=== PATIENT | female | born 1965 | race Caucasian/White ===

== ENCOUNTER 2017-12-03 10:49 | Emergency (ER) | payer MEDICARE, OTHER ==
[~2017-12-03] VITALS: Ht 177.8 cm; Wt 102.1 kg
[2017-12-03] MEDS ORDERED: LORA-877 PO (11:12)
[2017-12-03] MEDS ORDERED: ZOLP10TA PO (11:12)
[2017-12-03] MEDS ORDERED: AMOX-358 PO (11:12)
[2017-12-03] MEDS ORDERED: RISP0.2517 PO (11:14)
[2017-12-03] MEDS ORDERED: BUSP5TAB59 PO (11:14)
[2017-12-03] MEDS ORDERED: FLUO20CA42 PO (11:15)
[2017-12-03] MEDS: fentaNYL INJECTION 100 MCG/2 ML AMP IVP STA (12:09)
[2017-12-03 12:21] LABS: BASOPHILS % (AUTO) 1 % (0-10); EOSINOPHILS # (AUTO) 0.2 10^3/uL (0.0-0.3); EOSINOPHILS % (AUTO) 4 % (0-10); HEMATOCRIT 42 % (35-52); HEMOGLOBIN 14.1 G/DL (11.5-16.0); LYMPHOCYTES # (AUTO) 1.6 X 10^3 (1.0-4.0); LYMPHOCYTES % (AUTO) 27 % (12-44); MEAN CORPUSCULAR HEMOGLOBIN 29 PG (25-34); MEAN CORPUSCULAR HGB CONC 33 G/DL (32-36); MEAN CORPUSCULAR VOLUME 88 FL (80-99); MEAN PLATELET VOLUME 10.1 FL (7.4-10.4); MONOCYTES # (AUTO) 0.5 X 10^3 (0.0-1.0); MONOCYTES % (AUTO) 8 % (0-12); NEUTROPHILS # (AUTO) 3.7 X 10^3 (1.8-7.8); NEUTROPHILS % (AUTO) 61 % (42-75); PLATELET COUNT 241 10^3/uL (130-400); RED BLOOD COUNT 4.83 10^6/uL (4.35-5.85); RED CELL DISTRIBUTION WIDTH 14.8 % (10.0-14.5); WHITE BLOOD COUNT 6.1 10^3/uL (4.3-11.0)
[2017-12-03 12:45] LABS: ALANINE AMINOTRANSFERASE 7 U/L (0-55); ALBUMIN 4.2 GM/DL (3.2-4.5); ALKALINE PHOSPHATASE 73 U/L (40-136); AMYLASE 49 U/L (25-125); BILIRUBIN,TOTAL 0.4 MG/DL (0.1-1.0); BUN/CREATININE RATIO 16; CALCIUM 9.8 MG/DL (8.5-10.1); CARBON DIOXIDE 28 MMOL/L (21-32); CHLORIDE 100 MMOL/L (98-107); CREATININE SERUM 0.77 MG/DL (0.60-1.30); GFR ESTIMATED > 60; GLUCOSE 99 MG/DL (70-105); LIPASE 23 U/L (8-78); POTASSIUM 4.7 MMOL/L (3.6-5.0); SODIUM 135 MMOL/L (135-145); TOTAL PROTEIN 7.5 GM/DL (6.4-8.2)
--- NOTE | 2017-12-03 12:51 | Diagnostic Imaging Report ---
INDICATION: Chest wall pain and hoarseness PA and lateral views of the chest are obtained. There is no previous study available at this time for comparison. Heart size and pulmonary vascularity are within normal limits. There is no pneumothorax or consolidation. There is slight left basilar atelectasis. No pleural fluid is seen. IMPRESSION: Mild left basilar atelectasis without other evidence of acute abnormality. Dictated by: Dictated on workstation # [id number]
--- NOTE | 2017-12-03 12:58 | ED Respiratory ---
General Chief Complaint: Chest Wall/Rib Pain Stated Complaint: RT SIDE PAIN/COUGH Nursing Triage Note: PT CO OF R RIB PAIN, PT STATES HAS BRONCHITIS FOR PAST WEEK, IN ON 8TH DAY OF AUGMENTIN, RATES PAIN 8/10. History of Present Illness Date Seen by Provider: Dec 03, 2017 Time Seen by Provider: 11:45 Initial Comments 52-year-old female reports right rib pain, she was diagnosed with bronchitis approximately 7 days ago. She is taking Augmentin. She has been an albuterol inhaler but she has not used it for the last 2 days. She continues to smoke approximately half a pack a day. She reports brown sputum, she has noticed a decrease in the amount over the last 2 days. She has a history of hepatitis C. She denies any nausea or vomiting, she does report more frequent stools and darker in color. Timing/Duration: intermittent Severity: moderate Prior Episodes/Possible Cause: no prior episodes Modifying Factors: Improves With Rest Associated Symptoms: cough, muscle aches Allergies and Home Medications Allergies Coded Allergies: Sulfa (Sulfonamide Antibiotics) (Verified Allergy, Unknown, 12/03/17) erythromycin base (Verified Allergy, Unknown, 12/03/17) trazodone (Verified Allergy, Unknown, 12/03/17) Home Medications Amoxicillin/Potassium Clav 1 Each Tablet, 1 EACH PO BID, (Reported) Loratadine/Pseudoephedrine 1 Each Tab.er.24h, 1 EACH PO DAILY, (Reported) Patient Home Medication List Home Medication List Reviewed: Yes Review of Systems Constitutional: no symptoms reported, see HPI Respiratory: see HPI, cough, other (right rib pain) All Other Systems Reviewed Negative Unless Noted: Yes Past Qneaqmu-Cytsnz-Orzxmz Hx Past Med/Social Hx: Reviewed Nursing Past Med/Soc Hx Patient Social History Alcohol Use: Occasionally Uses Recreational Drug Use: No Smoking Status: Current Everyday Smoker Type Used: Cigarettes Recent Foreign Travel: No Contact w/Someone Who Travel: No Recent Infectious Disease Expo: No Recent Hopitalizations: No Physical Abuse: No Sexual Abuse: No Seasonal Allergies Seasonal Allergies: Yes Past Medical History Surgeries: Yes Abdominal Gastrointestinal: Yes Hepatitis (C) Nursing Suicide Risk Score: 0 Physical Exam Vital Signs Vital Signs - First Documented 12/03/17 10:55 Temp 98.2 Pulse 83 Resp 18 B/P (MAP) 123/81 (95) Pulse Ox 96 Capillary Refill : Less Than 3 Seconds General Appearance: WD/WN, no apparent distress Eyes: Bilateral Eye Normal Inspection, Bilateral Eye PERRL, Bilateral Eye EOMI Neck: non-tender, full range of motion, supple, normal inspection Respiratory: lungs clear, normal breath sounds, other (tactile fremitus symmetric vibrations, Symmetric Thoracic excursion. Pain to palpation right lower ribs at costal margin) Cardiovascular: normal peripheral pulses, regular rate, rhythm Gastrointestinal: normal bowel sounds, non tender, soft Extremities: normal capillary refill Neurologic/Psychiatric: no motor/sensory deficits, alert, normal mood/affect, oriented x 3 Skin: normal color, warm/dry Progress/Results/Core Measures Suspected Sepsis Recent Fever Within 48 Hours: No Infection Criteria Present: None New/Unexplained Altered Menta: No Sepsis Screen: No Definite Risk SIRS Temperature:98.2 Pulse: 83 Respiratory Rate: 18 Laboratory Tests 12/03/17 12:05: White Blood Count 6.1 Blood Pressure 123 /81 Mean: 95 Laboratory Tests 12/03/17 12:05: Creatinine 0.77, Platelet Count 241, Total Bilirubin 0.4 Results/Orders Lab Results Laboratory Tests Test 12/03/17 12:05 12/03/17 13:00 Range/Units White Blood Count 6.1 4.3-11.0 10^3/uL Red Blood Count 4.83 4.35-5.85 10^6/uL Hemoglobin 14.1 11.5-16.0 G/DL Hematocrit 42 35-52 % Mean Corpuscular Volume 88 80-99 FL Mean Corpuscular Hemoglobin 29 25-34 PG Mean Corpuscular Hemoglobin Concent 33 32-36 G/DL Red Cell Distribution Width 14.8 H 10.0-14.5 % Platelet Count 241 130-400 10^3/uL Mean Platelet Volume 10.1 7.4-10.4 FL Neutrophils (%) (Auto) 61 42-75 % Lymphocytes (%) (Auto) 27 12-44 % Monocytes (%) (Auto) 8 0-12 % Eosinophils (%) (Auto) 4 0-10 % Basophils (%) (Auto) 1 0-10 % Neutrophils # (Auto) 3.7 1.8-7.8 X 10^3 Lymphocytes # (Auto) 1.6 1.0-4.0 X 10^3 Monocytes # (Auto) 0.5 0.0-1.0 X 10^3 Eosinophils # (Auto) 0.2 0.0-0.3 10^3/uL Basophils # (Auto) 0.0 0.0-0.1 10^3/uL Sodium Level 135 135-145 MMOL/L Potassium Level 4.7 3.6-5.0 MMOL/L Chloride Level 100 98-107 MMOL/L Carbon Dioxide Level 28 21-32 MMOL/L Anion Gap 7 5-14 MMOL/L Blood Urea Nitrogen 12 7-18 MG/DL Creatinine 0.77 0.60-1.30 MG/DL Estimat Glomerular Filtration Rate > 60 BUN/Creatinine Ratio 16 Glucose Level 99 70-105 MG/DL Calcium Level 9.8 8.5-10.1 MG/DL Total Bilirubin 0.4 0.1-1.0 MG/DL Aspartate Amino Transf (AST/SGOT) 16 5-34 U/L Alanine Aminotransferase (ALT/SGPT) 7 0-55 U/L Alkaline Phosphatase 73 40-136 U/L C-Reactive Protein High Sensitivity 0.78 H 0.00-0.50 MG/DL Total Protein 7.5 6.4-8.2 GM/DL Albumin 4.2 3.2-4.5 GM/DL Amylase Level 49 25-125 U/L Lipase 23 8-78 U/L Urine Color YELLOW Urine Clarity CLEAR Urine pH 7 5-9 Urine Specific H[place]ckley 1.010 L 1.016-1.022 Urine Protein NEGATIVE NEGATIVE Urine Glucose (UA) NEGATIVE NEGATIVE Urine Ketones NEGATIVE NEGATIVE Urine Nitrite NEGATIVE NEGATIVE Urine Bilirubin NEGATIVE NEGATIVE Urine Urobilinogen NORMAL NORMAL MG/DL Urine Leukocyte Esterase NEGATIVE NEGATIVE Urine RBC (Auto) 2+ H NEGATIVE Urine RBC 0-2 /HPF Urine WBC NONE /HPF Urine Squamous Epithelial Cells 0-2 /HPF Urine Crystals NONE /LPF Urine Bacteria NEGATIVE /HPF Urine Casts NONE /LPF Urine Mucus NEGATIVE /LPF Urine Culture Indicated NO My Orders Orders - SONIA LANGSTON Amylase (12/03/17 11:58) Cbc With Automated Diff (12/03/17 11:58) Comprehensive Metabolic Panel (12/03/17 11:58) Hs C Reactive Protein (12/03/17 11:58) Hepatitis Panel Acute (12/03/17 11:58) Lipase (12/03/17 11:58) Ua Culture If Indicated (12/03/17 11:58) Chest Pa/Lat (2 View) (12/03/17 11:58) Saline Lock/Iv-Start (12/03/17 12:00) Fentanyl Injection (Sublimaze Injection (12/03/17 12:00) Vital Signs/I&O 12/03/17 12/03/17 10:55 13:40 Temp 98.2 Pulse 83 83 Resp 18 18 B/P (MAP) 123/81 (95) 123/81 (95) Pulse Ox 96 96 Capillary Refill : Less Than 3 Seconds Blood Pressure Mean: 95 Progress Note : Time: 11:45 Progress Note Initial evaluation completed, recommended labs and chest x-ray. Fentanyl 25 g IV for pain. 1245 patient reports some improvement in her symptoms. Chest x-ray and labs essentially normal. 1300 discharge instructions and return precautions reviewed. Diagnostic Imaging Diagonstic Imaging: Xray Plain Films/CT/US/NM/MRI: chest Comments NAME: VAL [facility] REC#: [id number] PT STATUS: REG ER : 1965 PHYSICIAN: SONIA LANGSTON ADMIT DATE: 12/03/17/ER Draft Date of Exam:12/03/17 CHEST PA/LAT (2 VIEW) INDICATION: Chest wall pain and hoarseness PA and lateral views of the chest are obtained. There is no previous study available at this time for comparison. Heart size and pulmonary vascularity are within normal limits. There is no pneumothorax or consolidation. There is slight left basilar atelectasis. No pleural fluid is seen. IMPRESSION: Mild left basilar atelectasis without other evidence of acute abnormality. Dictated on workstation # [id number] Dict: 12/03/17 1243 Trans: 12/03/17 1251 JOSEPH [id number] Interpreted by: KETURAH MORALES MD Electronically signed by: Departure Impression Primary Impression: Bronchitis Additional Impressions: Cough Pleurisy Disposition: 01 HOME, SELF-CARE Condition: Improved Departure-Patient Inst. Decision time for Depature: 13:15 Referrals: NO,LOCAL PHYSICIAN (PCP/Family) Primary Care Physician Patient Instructions: Pleuritic Chest Pain (DC) Add. Discharge Instructions: You may alternate Tylenol 650 mg and ibuprofen 600 mg every 4 hours for pain or fever. Use warm moist compression on your ribs for pain. Follow-up with your primary care provider at [facility] for results of hepatitis panel. Return to emergency department for difficulty breathing, increased pain, fever greater than 101 not relieved by Tylenol and ibuprofen or new urgent health care problems. All discharge instructions reviewed with patient and/or family. Voiced understanding. Copy Copies To 1: JUAN C SANCHEZ AMY ARNP Dec 03, 2017 12:58
[2017-12-03 13:09] LABS: BILIRUBIN,URINE NEGATIVE (NEGATIVE); CLARITY,URINE CLEAR; COLOR,URINE YELLOW; GLUCOSE, URINE (UA) NEGATIVE (NEGATIVE); KETONES,URINE NEGATIVE (NEGATIVE); LEUKOCYTE ESTERASE ,URINE NEGATIVE (NEGATIVE); NITRITE,URINE NEGATIVE (NEGATIVE); PH,URINE 7 (5-9); PROTEIN,URINE NEGATIVE (NEGATIVE); UROBILINOGEN,URINE NORMAL (NORMAL)
[2017-12-03 13:16] LABS: RBC,URINE 0-2 /HPF
[2017-12-03 13:17] LABS: BACTERIA,URINE NEGATIVE /HPF; SQUAMOUS EPITHELIAL CELL,UR 0-2 /HPF
[2017-12-03 13:40] VITALS: BP 123/81
[2017-12-04 07:44] LABS: HEPATITIS C ANTIBODY C Reactive (Non-Reactive)
== END 2017-12-03 13:30 | disposition home or self-care (01) ==
LOC: ER 10:53
DX: J40 Bronchitis, not specified as acute or chronic (principal); B19.20 Unspecified viral hepatitis C without hepatic coma; F17.210 Nicotine dependence, cigarettes, uncomplicated; Z88.2 Allergy status to sulfonamides; Z88.1 Allergy status to other antibiotic agents; Z88.8 Allergy status to other drugs, medicaments and biological substances; Z79.51 Long term (current) use of inhaled steroids
CPT/HCPCS: 36415; 71046; 80053; 80074; 81000; 82150; 83690; 85025; 86141; 96374

== ENCOUNTER → 2018-07-26 | Outpatient (CLI) | payer MEDICARE ==
[~2018-07-26] MED LIST: AMOX-358 PO; BUSP5TAB59 PO; FLUO20CA42 PO; LORA-877 PO; RISP0.2517 PO; ZOLP10TA PO
--- NOTE | 2018-07-26 14:42 | Diagnostic Imaging Report ---
PROCEDURE: CT abdomen and pelvis without contrast. TECHNIQUE: Multiple contiguous axial images were obtained through the abdomen and pelvis without the use of intravenous contrast. INDICATION: Microhematuria. COMPARISON: No prior studies are available for comparison. FINDINGS: Lung bases demonstrate some hazy density in bilateral lower lobes and right middle lobe, nonspecific. This may represent some minimal atelectasis or infiltrate. No discrete liver mass is identified. The gallbladder is unremarkable. No biliary ductal dilatation is seen. The pancreas and spleen are unremarkable. No adrenal mass is detected. The kidneys are unremarkable. No calculi or hydronephrosis is identified. The aorta is normal in caliber. The small and large bowel loops are normal in caliber. No obstruction is seen. There is no ascites. Uterus and bladder are unremarkable. No bladder calculi are seen. The ureters are unremarkable. IMPRESSION: Essentially unremarkable noncontrast CT of the abdomen and pelvis. No urinary tract calculi or obstruction is seen. No acute feature is identified. Dictated by: Dictated on workstation # [id number]
== END ==
LOC: RAD 13:05
PROVIDERS: ATTEND Urology
DX: R31.29 Other microscopic hematuria (principal)
CPT/HCPCS: 74176

== ENCOUNTER → 2018-08-05 | Outpatient (CLI) | payer MEDICARE ==
--- NOTE | 2018-08-05 12:37 | Diagnostic Imaging Report ---
INDICATION: Routine screening. No prior studies are available for comparison. This is a baseline study. 2-D and 3-D bilateral screening mammography was performed with CAD. Scattered fibroglandular densities are identified bilaterally. There are areas of nodularity bilaterally. This appears to be laterally located in the right breast at mid and posterior depth. Left breast nodule is in the mid depth just lateral to the nipple line on the CC view. Additional views are recommended. No suspicious calcifications are seen. Axilla are unremarkable. IMPRESSION: Bilateral breast nodularity. Additional views are recommended. BI-RADS zero ACR BI-RADS Category 0: Incomplete. (Needs additional imaging evaluation). Result letter will be mailed to the patient. Note: At least 10% of breast cancer is not imaged by mammography. Dictated by: Dictated on workstation # [id number]
== END ==
LOC: RAD 07:40
PROVIDERS: ATTEND Nurse Practitioner Primary Care
DX: Z12.31 Encounter for screening mammogram for malignant neoplasm of breast (principal); R92.8 Other abnormal and inconclusive findings on diagnostic imaging of breast
CPT/HCPCS: 77067

== ENCOUNTER → 2018-08-25 | Outpatient (CLI) | payer MEDICARE ==
--- NOTE | 2018-08-25 19:22 | Diagnostic Imaging Report ---
INDICATION: Bilateral breast densities. This study is performed for further evaluation. EXAMINATION: Limited bilateral breast ultrasound. FINDINGS: Right breast: Sonographic interrogation of the outer, as well as upper outer, right breast at mid and posterior depth was performed. There is a smoothly marginated region of hypoechogenicity in the 8 o'clock location of the right breast, 5 cm from the nipple, measuring 16 mm x 5 mm x 7 mm. This may account for the density noted at mid depth and outer on mammography. This has benign features. No internal vascularity is seen. No other suspicious abnormalities are seen. In particular, no abnormality in the upper outer right breast is seen to account for areas of slight nodularity, mammographically. Left breast: There is a lymph node at the 3 o'clock location of the left breast, 8 cm from the nipple, measuring 7 mm x 6 mm x 8 mm. This does not likely account for the density noted mammographically. No abnormality in the 3 o'clock location of the left breast 6 cm from the nipple is seen. No suspicion abnormality is identified in either breast. IMPRESSION: No suspicious abnormality is identified sonographically. Even so, followup bilateral mammography in 6 months is recommended to confirm stability of bilateral nodular densities. ACR BI-RADS Category 3: Probably benign findings. Result letter will be mailed to the patient. Note: At least 10% of breast cancer is not imaged by mammography. Dictated by: Dictated on workstation # [id number]
--- NOTE | 2018-08-25 19:49 | Diagnostic Imaging Report ---
INDICATION: Bilateral breast densities. Patient presents for additional views. COMPARISON: Correlation is made with recent screening study from 08/05/2018. EXAMINATION: 2D and 3D bilateral diagnostic mammography was performed. This included bilateral 90 degree lateral views as well as spot compression CC and ML views. FINDINGS: Additional views show persistent nodular densities in both breasts. Density on the left appears to be laterally located at the approximately 3 o'clock location and 6 cm from the nipple. Several densities on the right are noted. Density at mid depth is located at approximately the 8-9 o'clock location, 7 cm from the nipple. Smaller nodular densities in upper outer right breast are seen at the approximately 10 o'clock location and 10 cm from the nipple. No suspicious calcifications are seen. IMPRESSION: Bilateral breast densities. Further evaluation with ultrasound is recommended and will be performed today. ACR BI-RADS Category 0: Incomplete. (Needs additional imaging evaluation). Result letter will be mailed to the patient. Note: At least 10% of breast cancer is not imaged by mammography. Dictated by: Dictated on workstation # [id number]
== END ==
LOC: RAD 12:51
PROVIDERS: ATTEND Nurse Practitioner Primary Care
DX: R92.2 Inconclusive mammogram (principal)
CPT/HCPCS: 76642; 77066

== ENCOUNTER → 2019-03-02 | Outpatient (CLI) | payer MEDICARE ==
--- NOTE | 2019-03-02 18:31 | Diagnostic Imaging Report ---
INDICATION: Followup exam. EXAMINATION: Bilateral breast ultrasound, limited. FINDINGS: The previous bilateral breast ultrasound exam performed on 08/15/2018 noted benign-appearing hypoechoic lesions in both breasts. Those findings are again evident and do not appear to have changed. Given the stable appearance of the patient's mammogram, I do feel there is no sonographic or radiographic evidence of malignancy at this time. I would recommend that a followup mammogram be obtained in one year for continued evaluation. IMPRESSION: There is no evidence for malignancy. Recommendations as above. ACR BI-RADS Category 2: Benign findings. Result letter will be mailed to the patient. Note: At least 10% of breast cancer is not imaged by mammography. Dictated by: Dictated on workstation # [id number]
--- NOTE | 2019-03-02 18:44 | Diagnostic Imaging Report ---
INDICATION: Followup exam. EXAMINATION: Bilateral breast digital diagnostic mammogram with CAD. The current study was also evaluated with a Computer Aided Detection (CAD) system. FINDINGS: The baseline screening mammogram of 08/05/2018 noted nodular densities in both breasts. The subsequent diagnostic mammogram and ultrasound exam of 08/25/2018 failed to show any sign of malignancy. On this exam, the overall appearance of the breasts has not changed significantly. There is still no primary or secondary sign of malignancy noted. IMPRESSION: 1. There is no evidence for malignancy. 2. A bilateral breast ultrasound exam is pending for further study. ACR BI-RADS Category 0: Incomplete. (Needs additional imaging evaluation). Result letter will be mailed to the patient. Note: At least 10% of breast cancer is not imaged by mammography. Dictated by: Dictated on workstation # [id number]
== END ==
LOC: RAD 08:05
PROVIDERS: ATTEND Nurse Practitioner Primary Care
DX: R92.8 Other abnormal and inconclusive findings on diagnostic imaging of breast (principal)
CPT/HCPCS: 76642; 77066

== ENCOUNTER 2020-06-13 20:39 | Emergency (ER) | payer MEDICARE ==
[~2020-06-13] VITALS: Ht 177.8 cm; Wt 113.3 kg
[2020-06-13 20:45] VITALS: BP 150/97
[2020-06-13] MEDS ORDERED: CEPHALEXIN 250 MG (KEFLEX) CAP PO ONE (21:00)
[2020-06-13] MEDS ORDERED: CIPROFLOXACIN 500 MG (CIPRO) TABLET PO SCH (21:00)
[2020-06-13] MEDS ORDERED: TETANUS,DIPTH,PERTUSS P/F (BOOSTRIX) 0.5 ML VIAL IM ONE (21:00)
--- NOTE | 2020-06-13 21:00 | ED Lower Extremity ---
General Chief Complaint: Laceration Stated Complaint: LACERATION TO FOOT Source: patient Exam Limitations: no limitations History of Present Illness Date Seen by Provider: Jun 13, 2020 Time Seen by Provider: 20:54 Initial Comments To ER with c/o puncture wound to left foot. Stepped on a leaf blender blade in the driveway. This punctured thru the sole of her shoe. She was concerned about the amount of bleeding but the pain was minimal. Tetanus is NOT up to dtate. Onset: just prior to arrival Severity: moderate Pain/Injury Location: left foot Modifying Factors: Worse With Movement Allergies and Home Medications Allergies Coded Allergies: Sulfa (Sulfonamide Antibiotics) (Verified Allergy, Unknown, 06/13/20) erythromycin base (Verified Allergy, Unknown, 06/13/20) trazodone (Verified Allergy, Unknown, 06/13/20) Home Medications Amoxicillin/Potassium Clav 1 Each Tablet, 1 EACH PO BID, (Reported) Cephalexin 500 Mg Capsule, 500 MG PO TID Prescribed by: DADA FOOTE on 06/13/202100 Levofloxacin 500 Mg Tablet, 500 MG PO DAILY Prescribed by: DADA FOOTE on 06/13/202100 Loratadine/Pseudoephedrine 1 Each Tab.er.24h, 1 EACH PO DAILY, (Reported) Patient Home Medication List Home Medication List Reviewed: Yes Review of Systems Constitutional: see HPI EENTM: see HPI Respiratory: no symptoms reported Cardiovascular: no symptoms reported Genitourinary: no symptoms reported Musculoskeletal: no symptoms reported Skin: no symptoms reported Psychiatric/Neurological: No Symptoms Reported Past Efraove-Crkzhl-Sefbfh Hx Patient Social History Type Used: Cigarettes Recent Foreign Travel: No Contact w/Someone Who Travel: No (N) Recent Hopitalizations: No Seasonal Allergies Seasonal Allergies: Yes Past Medical History Surgeries: Yes Abdominal Gastrointestinal: Yes Hepatitis Physical Exam Vital Signs Vital Signs - First Documented 06/13/20 20:45 Temp 36.4 Pulse 84 Resp 18 B/P (MAP) 150/97 (114) Pulse Ox 97 Capillary Refill : Height, Weight, BMI Height: 5'10.00" Weight: 225lbs. oz. 102.129953wp; BMI Method:Stated General Appearance: WD/WN, no apparent distress Respiratory: no respiratory distress, no accessory muscle use Hips: bilateral hip non-tender, bilateral hip normal inspection, bilateral hip normal range of motion Legs: bilateral leg non-tender, bilateral leg normal inspection, bilateral leg normal range of motion Knees: bilateral knee non-tender, bilateral knee normal inspection, bilateral knee normal range of motion Ankles: bilateral ankle non-tender, bilateral ankle normal inspection, bilateral ankle normal range of motion Feet: left foot other (1cm laceratino to the arch of the plantar surface of the foot on the left. No active bleeding tho there is quite a bite of dried blood. no palpable foreign body. Because this is a contaminated plantar surface wound, we scrubbed and irrigated with saline, will update tetanus. NOT going to suture this. Will cover with keflex + levaquin for pseudomonas coverage. ) Neurologic/Psychiatric: alert, normal mood/affect, oriented x 3 Skin: normal color, warm/dry Progress/Results/Core Measures Results/Orders My Orders Orders - DADA FOOTE APRN Dipht,Pertuss(Acell),Tet Adult (Boostrix (06/13/20 21:00) Cephalexin Capsule (Keflex Capsule) (06/13/20 21:00) Ciprofloxacin Tablet (Cipro Tablet) (06/13/20 21:00) Foot, Left, 2 View (06/13/20 20:53) Vital Signs/I&O 06/13/20 20:45 Temp 36.4 Pulse 84 Resp 18 B/P (MAP) 150/97 (114) Pulse Ox 97 Departure Impression Primary Impression: Puncture wound of plantar aspect of left foot Disposition: HOME, SELF-CARE Condition: Stable Departure-Patient Inst. Decision time for Depature: 20:59 Referrals: [facility] [place] Primary Care Physician CYNTHIA KEN (Family) Primary Care Physician Patient Instructions: Wound Care (DC) Add. Discharge Instructions: 1. Change dressing daily until this scabs over. Return to Er for any swelling, redness, or other concerns. Take antibiotics as directed All discharge instructions reviewed with patient and/or family. Voiced under standing. Scripts Cephalexin (Keflex) 500 Mg Capsule 500 MG PO TID, #9 CAP Prov: DADA FOOTE APRN 06/13/20 Levofloxacin (Levofloxacin) 500 Mg Tablet 500 MG PO DAILY, #3 TAB Prov: DADA FOOTE APRN 06/13/20 DADA FOOTE APRN Jun 13, 2020 21:00
[2020-06-13] MEDS ORDERED: LEVO500T80 PO (21:01)
[2020-06-13] MEDS ORDERED: CEPH-507 PO (21:01)
--- NOTE | 2020-06-13 21:19 | Diagnostic Imaging Report ---
EXAMINATION: Left foot radiographs, 2 views. COMPARISON: None. HISTORY: 54-year-old female, puncture wound to the mid plantar surface of the left foot. FINDINGS: There are limitations of the exam relating to the two-view technique. There is a chronic deformity of the mid to distal diaphysis of the second metatarsal. There is a calcaneal heel spur. 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 There is no particularly prominent joint space loss. There is no tibiotalar joint effusion. There is no identified radiopaque foreign body. There is no cortical or aggressive bone destruction. There is no periosteal reaction. There is no identified acute fracture. IMPRESSION: 1. No acute bony abnormality. 2. No radiopaque foreign body. Dictated by: Dictated on workstation # [id number]
== END 2020-06-13 21:20 ==
LOC: EDUNIT# 20:39 → ER 20:40
DX: S91.332A Puncture wound without foreign body, left foot, initial encounter (principal); Z88.2 Allergy status to sulfonamides; Z88.1 Allergy status to other antibiotic agents; Z88.8 Allergy status to other drugs, medicaments and biological substances; Z23 Encounter for immunization; W29.0XXA Contact with powered kitchen appliance, initial encounter
CPT/HCPCS: 73620; 90715

== ENCOUNTER 2023-01-05 09:03 | Emergency (ER) | payer OTHER, MEDICARE ==
[~2023-01-05] VITALS: Ht 175.3 cm; Wt 98.4 kg
[~2023-01-05 09:03] MED LIST changes: +CEPH-507 PO; +LEVO-55 PO
--- NOTE | 2023-01-05 09:31 | ED Back Pain ---
General Chief Complaint: Back Problems Stated Complaint: LOWER BACK PAIN Nursing Triage Note: PT AMBULATE TO ROOM 06 WITH C/O LEFT LOWER BACK PAIN THAT RADIATES DOWN THE LEFT BUTTOCKS STARTING THIS MORNING. PT REPORTS TAKING EXCEDRIN MIGRAINE AT 0600 TODAY. PT REPORTS THIS TYPE OF PAIN PREVIOUSLY THAT WAS NOT THIS PAINFUL. Source of Information: Patient Exam Limitations: No Limitations History of Present Illness Date Seen by Provider: January 05, 2023 Time Seen by Provider: 09:31 Initial Comments Patient is a 57-year-old female who presents to the emergency room with a chief complaint of low back pain, left posterior hip buttock and thigh pain onset 2 or 3 days ago. Patient cannot recall any activity or injury. She states she has had similar symptoms years ago when she used to sit working at a [employer]. She states the pain radiates into her left buttock and down into the left upper posterior thigh. She denies any incontinence of bowel or bladder. No numbness to the leg, the pain does not radiate below the knee. She states the pain is worse in the morning when she first wakes up to get out of bed. She denies any associated illnesses, urinary complaints or diarrhea. She has been using some lidocaine to the area and [id number] pain reliever. She states the pain is so severe first thing in the morning that it makes her cry. Timing/Duration: 2-3 Days Severity: Severe Pain/Injury Location: Back Radiation: Buttocks (left ) Modifying Factors: Improves With Immobilization; Worse With Movement Associated Symptoms: No numbness in legs/feet, No tingling in legs/feet, No sensory/motor loss; lower back pain; No loss of bladder control, No loss of bowel control Allergies and Home Medications Allergies Coded Allergies: Sulfa (Sulfonamide Antibiotics) (Verified Allergy, Unknown, 06/13/20) erythromycin base (Verified Allergy, Unknown, 06/13/20) trazodone (Verified Allergy, Unknown, 06/13/20) Patient Home Medication List Home Medication List Reviewed: Yes Amoxicillin/Potassium Clav (Augmentin 875-125 Tablet) 1 Each Tablet, 1 EACH PO BID, (Reported) Entered as Reported by: SUZANNE MOSQUEDA on 12/03/17 1112 Buspirone HCl (Buspirone HCl) 5 Mg Tablet, Unknown Dose PO, (Reported) Entered as Reported by: SUZANNE MOSQUEDA on 12/03/17 111 Cephalexin (Keflex) 500 Mg Capsule, 500 MG PO TID Prescribed by: DADA FOOTE on 06/13/202100 Fluoxetine HCl (Prozac) 20 Mg Capsule, Unknown Dose PO, (Reported) Entered as Reported by: SUZANNE MOSQUEDA on 12/03/17 111 Levofloxacin (Levofloxacin) 500 Mg Tablet, 500 MG PO DAILY Prescribed by: DADA FOOTE on 06/13/202100 Loratadine/Pseudoephedrine (Claritin-D 24 Hour Tablet) 1 Each Tab.er.24h, 1 EACH PO DAILY, (Reported) Entered as Reported by: SUZANNE MOSQUEDA on 12/03/17 111 Risperidone (Risperdal) 0.25 Mg Tablet, Unknown Dose PO, (Reported) Entered as Reported by: SUZANNE MOSQUEDA on 12/03/17 111 Zolpidem Tartrate (Ambien) 10 Mg Tablet, Unknown Dose PO, (Reported) Entered as Reported by: SUZANNE MOSQUEDA on 12/03/17 111 Review of Systems Constitutional: see HPI EENTM: no symptoms reported Respiratory: no symptoms reported Cardiovascular: no symptoms reported Gastrointestinal: no symptoms reported Genitourinary: no symptoms reported Musculoskeletal: back pain, muscle pain (left buttock and posterior thigh) Skin: no symptoms reported Psychiatric/Neurological: No Symptoms Reported Past Qujnpmv-Qzqaek-Eyzuvz Hx Patient Social History Tobacco Use?: Yes Tobacco type used: Cigarettes Smoking Status: Current Everyday Smoker Smokeless Tobacco Frequency: Never a User Use of E-Cig and/or Vaping dev: No Use of E-Cig and/or Vaping Jose M: Never a User Substance use?: No Alcohol Use?: Yes Alcohol Frequency: Once in a while Pt feels they are or have been: No Immunizations Up To Date Tetanus Booster (TDap): Unknown Seasonal Allergies Seasonal Allergies: Yes Past Medical History Surgeries: Yes Abdominal Respiratory: No Cardiac: No 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 oz. 102.881107tb; 32.00 BMI Method:Stated General Appearance: No Apparent Distress, WD/WN HEENT: PERRL/EOMI Neck: Normal Inspection Cardiovascular: Normal Peripheral Pulses Respiratory: No Accessory Muscle Use, No Respiratory Distress Back: Normal Inspection, Other (tenderness to palpation to lower back just above gluteal cleft and over posterior superior iliiac crest. Tender to palpation over the left sciatic nerve. Neg straight leg raise bilaterally. Intact motor and sensory function to the left leg. No lower extremity edema) Neurologic/Psychiatric: Alert, Oriented x3, No Motor/Sensory Deficits, Normal Mood/Affect Skin: Normal Color, Warm/Dry Progress/Results/Core Measures Results/Orders My Orders Orders - SAMUEL HAND MD Prednisone Tablet (Deltasone Tablet) (01/05/23 09:45) Vital Signs/I&O 01/05/23 09:11 Temp 36.0 Pulse 71 Resp 17 B/P (MAP) 176/109 (131) O2 Delivery Room Air Blood Pressure Mean: 131 Progress Progress Note : Time: 09:55 Progress Note Patient seen and evaluated by me. Evaluation today includes physical exam. Pertinent physical exam findings include tenderness over the left sciatic nerve in the left gluteal region. Tenderness over the mid spine just above the gluteal cleft. Tenderness over the left posterior superior iliac crest. No overlying erythema/rashes or swelling. She is intact and motor and sensory function to the left lower extremity. No saddle anesthesia. Negative straight leg raise bilaterally. No lower extremity edema. Differential diagnosis acute sciatica, nerve root compression. Patient is treated with 50 mg of prednisone in the emergency department. I have counseled the patient extensively on monitoring her blood sugar as she is a diabetic and I informed her that steroids will increase her blood sugar. We will put her on a 5-day burst of 50 mg. We will give her some tramadol for home as well as a muscle relaxer. I have encouraged her to continue to use lidocaine patches. She needs to be up and moving and stretching the area is much as possible. Follow-up advised with her primary care physician. Return precautions provided. All questions are sought and answered. Departure Impression Primary Impression: Acute back pain with sciatica Qualified Codes: M54.42 - Lumbago with sciatica, left side Disposition: 01 HOME, SELF-CARE Condition: Stable Departure-Patient Inst. Decision time for Depature: 09:47 Ref[facility]: [facility] [place] Primary Care Physician Patient Instructions: Sciatica Exercises Add. Discharge Instructions: Take the tramadol 1 every 6 hours as needed for severe pain. Otherwise you can take 3 nifv-ter-owijfca ibuprofen which is 600 mg every 6 hours as needed. Always take ibuprofen with food. Flexeril which is a muscle relaxer 1 every 8 hours as needed for muscle spasms and to help with the pain medication. Continue to use the lidocaine on the area of soreness. Please follow packaging instructions. Take the prednisone 50 mg 1 tablet daily for the next 4 days. You need to watch your blood sugar closely as any steroid will increase your blood sugar because you are a diabetic. Check your blood sugars often at home. Return to the emergency department for any worsening pain especially with weakness in the leg, worsening numbness or any other emergent, concerning symptoms. Scripts Tramadol HCl (Tramadol HCl) 50 Mg Tablet 50 MG PO Q6H PRN for PAIN for 3 Days, #12 TAB 0 Refills Prov: SAMUEL HAND MD 01/05/23 Cyclobenzaprine HCl (Cyclobenzaprine HCl) 5 Mg Tablet 5 MG PO Q8H PRN for muscle spasm for 3 Days, #9 TAB Prov: SAMUEL HAND MD 01/05/23 Prednisone (Prednisone) 50 Mg Tab 50 MG PO DAILY for 4 Days, #4 TAB Prov: SAMUEL HAND MD 01/05/23 Copy Copies To 1: JUAN C SNACHEZ KATHRYN M MD January 05, 2023 09:31
[2023-01-05] MEDS ORDERED: predniSONE 20 MG TAB PO ONE (09:45)
[2023-01-05] MEDS ORDERED: RX-CYCLOBENZAPRINE 10 MG (FLEXERIL) TAB PPK#3 PO STA (09:52)
[2023-01-05] MEDS ORDERED: PRD50T PO (09:59)
[2023-01-05] MEDS ORDERED: TRM50T PO (09:59)
[2023-01-05] MEDS ORDERED: CYCL5TAB PO (09:59)
[2023-01-05 10:27] VITALS: BP 142/85
== END 2023-01-05 10:27 | disposition home or self-care (01) ==
LOC: EDUNIT# 09:03 → ER 09:06
DX: M54.42 Lumbago with sciatica, left side (principal); F17.210 Nicotine dependence, cigarettes, uncomplicated
CPT/HCPCS: 99283

== ENCOUNTER → 2023-04-06 | Outpatient (CLI) | payer OTHER ==
[~2023-04-06] MED LIST changes: +CYCL5TAB PO; +PRD50T PO; +TRM50T PO
--- NOTE | 2023-04-06 11:31 | Diagnostic Imaging Report ---
PROCEDURE: MRI lumbar spine. TECHNIQUE: Multiplanar, multisequence MRI of the lumbar spine was performed without contrast. INDICATION: Left hip pain and back pain. COMPARISON: None. FINDINGS: The lumbar spine is normally aligned. No acute fracture. Mild multilevel degenerative disc desiccation and disc height loss. No marrow replacing process to suggest malignancy. Degenerative endplate edema at L5-S1. The conus terminates at a normal level. No abnormal signal is seen within the visualized distal spinal cord. No clumping of intrathecal nerve roots. No soft tissue abnormality in the visualized abdomen or pelvis. T12-L1: No disc bulge. No facet arthropathy. No significant spinal stenosis or neural foraminal narrowing. L1-L2: No disc bulge. No facet arthropathy. No significant spinal stenosis or neural foraminal narrowing. L2-L3: No disc bulge. No facet arthropathy. No significant spinal stenosis or neural foraminal narrowing. L3-L4: Disc bulge. Mild facet arthropathy. No significant spinal stenosis or neural foraminal narrowing. L4-L5: Asymmetric left foraminal disc bulge. Moderate facet arthropathy. Ligamentum flavum thickening. Mild to moderate spinal canal and lateral recess stenosis. Mild left neural foraminal narrowing. No right neural foraminal narrowing. L5-S1: Disc bulge with annular tear. Mild facet arthropathy. Mild spinal stenosis. Mild bilateral neural foraminal narrowing. IMPRESSION: Mild to moderate multilevel degenerative lumbar spondylosis described level by level above. No high grade spinal canal or neuroforaminal narrowing. Type I Modic change at L5-S1. Dictated by: Dictated on workstation # [id number]
== END ==
LOC: RAD 09:21
PROVIDERS: ATTEND Pediatrics
DX: M53.86 Other specified dorsopathies, lumbar region (principal); M47.816 Spondylosis without myelopathy or radiculopathy, lumbar region; M25.552 Pain in left hip; M51.26 Other intervertebral disc displacement, lumbar region; M51.27 Other intervertebral disc displacement, lumbosacral region; M47.817 Spondylosis without myelopathy or radiculopathy, lumbosacral region; M48.07 Spinal stenosis, lumbosacral region; M51.37 Other intervertebral disc degeneration, lumbosacral region
CPT/HCPCS: 72148

== ENCOUNTER 2023-07-14 18:48 | Emergency (ER) | payer OTHER, MEDICARE ==
[~2023-07-14] VITALS: Ht 177.8 cm; Wt 100.0 kg
[2023-07-14 19:14] VITALS: BP 158/94
[2023-07-14] MEDS ORDERED: ORPHENADRINE 60 MG/2 ML AMP (ED ONLY) IM ONE (19:30)
[2023-07-14] MEDS ORDERED: KETOROLAC INJ 30 MG/ML VIAL IM ONE (19:30)
--- NOTE | 2023-07-14 19:38 | ED Back Pain ---
General Chief Complaint: Back Problems Stated Complaint: RT HIP/LEG PAIN Source of Information: Patient Exam Limitations: No Limitations (MIGUEL ÁNGEL ALDANA) History of Present Illness Date Seen by Provider: Jul 14, 2023 Time Seen by Provider: 19:31 Initial Comments Patient is a 57-year-old female who presents to the ED for lower back pain. Patient states she has a history of low back pain with sciatica to the left leg. She has been receiving epidurals, steroid injections PT. She states back in June she injured her lower back while doing PT. She heard a pop. This started developing pain on the right side of her back with radiation to her right thigh and right ankle. This pain is described as sharp and shooting. She reports numbness and tingling. She denies of any lower extremity weakness, bowel or urine incontinence or saddle paresthesia. She does take Lyrica, hydrocodone and a muscle relaxer without much improvement. Moderate distress on arrival. She does see pain specialist. She does have a follow-up with her primary care physician 12 days. Patient denies any fever, chills, drug use, weight loss. (MIGUEL ÁNGEL ALDANA) Allergies and Home Medications Allergies Coded Allergies: Sulfa (Sulfonamide Antibiotics) (Verified Allergy, Unknown, 06/13/20) erythromycin base (Verified Allergy, Unknown, 06/13/20) trazodone (Verified Allergy, Unknown, 06/13/20) Patient Home Medication List Home Medication List Reviewed: Yes (MIGUEL ÁNGEL ALDANA) Amoxicillin/Potassium Clav (Augmentin 875-125 Tablet) 1 Each Tablet, 1 EACH PO BID, (Reported) Entered as Reported by: SUZANNE MOSQUEDA on 12/03/17 111 Buspirone HCl (Buspirone HCl) 5 Mg Tablet, Unknown Dose PO, (Reported) Entered as Reported by: SUZANNE MOSQUEDA on 12/03/17 111 Cephalexin (Keflex) 500 Mg Capsule, 500 MG PO TID Prescribed by: DADA FOOTE on 06/13/20 210 Cyclobenzaprine HCl (Cyclobenzaprine HCl) 5 Mg Tablet, 5 MG PO Q8H PRN for muscle spasm Prescribed by: SAMUEL HAND on 01/05/23 0959 Fluoxetine HCl (Prozac) 20 Mg Capsule, Unknown Dose PO, (Reported) Entered as Reported by: SUZANNE MOSQUEDA on 12/03/17 111 Levofloxacin (Levofloxacin) 500 Mg Tablet, 500 MG PO DAILY Prescribed by: DADA FOOTE on 06/13/202100 Loratadine/Pseudoephedrine (Claritin-D 24 Hour Tablet) 1 Each Tab.er.24h, 1 EACH PO DAILY, (Reported) Entered as Reported by: SUZANNE MOSQUEDA on 12/03/17 111 Methylprednisolone (Medrol Dose pack) 4 Mg Tab, 4 MG PO UD Prescribed by: HILDA BAIRD on 07/14/232013 Prednisone (Prednisone) 50 Mg Tab, 50 MG PO DAILY Prescribed by: SAMUEL HAND on 01/05/23 0959 Risperidone (Risperdal) 0.25 Mg Tablet, Unknown Dose PO, (Reported) Entered as Reported by: SUZANNE MOSQUEDA on 12/03/17 111 Tramadol HCl (Tramadol HCl) 50 Mg Tablet, 50 MG PO Q6H PRN for PAIN Prescribed by: SAMUEL HAND on 01/05/23 0959 Zolpidem Tartrate (Ambien) 10 Mg Tablet, Unknown Dose PO, (Reported) Entered as Reported by: SUZANNE MOSQUEDA on 12/03/171111 Review of Systems Constitutional: No chills, No diaphoresis, No malaise, No weakness EENTM: No ear pain, No blurred vision, No double vision Respiratory: No cough, No dyspnea on exertion Cardiovascular: No chest pain Gastrointestinal: No abdominal pain, No diarrhea, No nausea, No vomiting Genitourinary: No decreased output, No discharge, No dysuria, No frequency, No hematuria Musculoskeletal: back pain; No joint pain Skin: No change in color, No change in hair/nails (MIGUEL ÁNGEL ALDANA) All Other Systems Reviewed Negative Unless Noted: Yes (MIGUEL ÁNGEL ALDANA) Past Hbgphni-Aaluwa-Wcmqxw Hx Patient Social History Tobacco Use?: Yes Tobacco type used: Cigarettes Smoking Status: Current Everyday Smoker Use of E-Cig and/or Vaping dev: No Substance use?: No Alcohol Use?: Yes Alcohol Frequency: Once in a while (MIGUEL ÁNGEL ALDANA) Immunizations Up To Date Tetanus Booster (TDap): Unknown (MIGUEL ÁNGEL ALDANA) Seasonal Allergies Seasonal Allergies: Yes (MIGUEL ÁNGEL ALDANA) Past Medical History Surgeries: Yes Abdominal Respiratory: No Cardiac: No 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 oz. 102.769312lq; 32.00 BMI Method:Stated General Appearance: No Apparent Distress, WD/WN HEENT: PERRL/EOMI, TMs Normal, Normal ENT Inspection, Pharynx Normal Neck: Full Range of Motion, Normal Inspection, Non Tender, Supple Cardiovascular: Regular Rate, Rhythm, No Edema, No Gallop, No JVD, No Murmur Respiratory: Chest Non Tender, Lungs Clear, Normal Breath Sounds, No Accessory Muscle Use, No Respiratory Distress Gastrointestinal: Normal Bowel Sounds, No Organomegaly, No Pulsatile Mass, Non Tender Back: No CVA Tenderness, Vertebral Tenderness (Right lumbar midline tenderness, right lumbar paraspinal muscle tenderness.) Extremity: Normal Capillary Refill, Normal Inspection, Normal Range of Motion, Non Tender Neurologic/Psychiatric: Alert, Oriented x3, No Motor/Sensory Deficits, Normal Mood/Affect, pulverizing and sifting operator II-XII Norm as Tested Skin: Normal Color, Warm/Dry (MIGUEL ÁNGEL ALDANA) Progress/Results/Core Measures Results/Orders Medications Given in ED Current Medications Medications Dose Ordered Sig/Damian Route Start Time Stop Time Status Last Admin Dose Admin Ketorolac Tromethamine 30 mg ONCE ONCE IM 07/14/23 19:30 07/14/23 19:31 DC 07/14/23 19:45 30 MG Orphenadrine Citrate 60 mg ONCE ONCE IM 07/14/23 19:30 07/14/23 19:31 DC 07/14/23 19:45 60 MG Oxycodone HCl 5 mg ONCE ONCE PO 07/14/23 20:00 07/14/23 20:01 DC 07/14/23 20:06 5 MG (DUGLAS JACKSON DO) Vital Signs/I&O 07/14/23 19:14 Temp 36.7 Pulse 80 Resp 18 B/P (MAP) 158/94 (115) Pulse Ox 100 O2 Delivery Room Air (DUGLAS JACKSON DO) Departure Communication (PCP) Patient presents ED with worsening lower back pain. Does report a history of sciatica to the left side. Reinjured her back while doing physical therapy in June. She has not followed up since. Sharp shooting pain down into the right thigh right lower leg. No bowel or urine incontinence or saddle paresthesia. Does take hydrocodone, muscle relaxer and Lyrica without much improvement. Moderate distress on arrival. No specific urinary symptoms or recent falls. She reports an epidural 2 weeks ago without much improvement. She does have tenderness along the lumbar spine. No fever, weight loss or drug use. Due to the worsening pain CT scan of the lower back was ordered. Degenerative findings were noted with new calcifications anterior to the facets at L4-L5 likely old. Likely more chronic. There is suspected bulging disc at L4-L5 at least moderate to severe central canal stenosis. Likely bulging disc at L5-S1. Discussed these results with patient. She did receive Toradol, Norflex and dose of oxycodone. Pain better controlled. She is able to stand and bear weight. No neurological red flag findings suggesting emergent MRI. At this time suggest outpatient MRI for further evaluation. Need to follow-up your primary care physician to discuss further evaluation with neurosurgery for evaluation. She agrees with this plan of action. Continue with your pain regimen at home. Continue with PT. If any worsening symptoms return back to ED. (MIGUEL ÁNGEL ALDANA) Impression Primary Impression: Lumbar radiculopathy Disposition: HOME, SELF-CARE Condition: Stable Departure-Patient Inst. Decision time for Depature: 20:13 (MIGUEL ÁNGEL ALDANA) Referrals: WILLIE TONG DO (PCP) Primary Care Physician [facility] (Family) Primary Care Physician Patient Instructions: Low Back Pain (DC) Add. Discharge Instructions: Need to follow-up with your primary care physician for further evaluation. Neurosurgery outpatient follow-up. Will add on steroids to help with inflammation. Continue with your pain regimen. If any worsening symptoms such as bowel or urine incontinence, lower extremity weakness to return back to ED. All discharge instructions reviewed with patient and/or family. Voiced understanding. Scripts Methylprednisolone (Medrol Dose pack) 4 Mg Tab 4 MG PO UD for 6 Days, #21 TAB as directed per dose pack Prov: MIGUEL ÁNGEL ALDANA 07/14/23 ATTENDING PHYSICIAN NOTE: I WAS PHYSICALLY PRESENT ER PHYSICIAN, BUT I WAS NOT INVOLVED IN ANY DECISION MAKING OR ANY CARE OF THIS PATIENT AND I AM NOT COLLABORATING PHYSICIAN. (DUGLAS JACKSON DO) MIGUEL ÁNGEL ALDANA Jul 14, 2023 19:38 DUGLAS JACKSON DO Jul 15, 2023 00:14
--- NOTE | 2023-07-14 19:50 | Diagnostic Imaging Report ---
PROCEDURE: CT lumbar spine without contrast. TECHNIQUE: Multiple contiguous axial images were obtained through the lumbar spine without the use of intravenous contrast. Sagittal and coronal reformations were then performed. Auto Exposure Controls were utilized during the CT exam to meet ALARA standards for radiation dose reduction. INDICATION: Low back pain, right-sided sciatica. EXAMINATION: CT lumbar spine 07/14/2023 FINDINGS: There is some normal height and alignment of the vertebral bodies. Mild osteopenia noted. There is degenerative disease with narrowing and anterior spurring at T11-T12. Narrowing and vacuum phenomenon as well as endplate sclerosis seen at L5-S1 slightly more pronounced than on previous CT from 07/26/2018. Adjacent to the facets at the L4-L5 level there are bilateral symmetric appearing calcifications. Given the symmetry, these are likely chronic although new since previous CT. Small fractures unlikely given the appearance but if there is continued pain MRI may provide further characterization for possible edema. Remaining osseous structures unremarkable. There is a suspected bulging disc at L4-L5. At least moderate if not severe central stenosis at this level noted. There is likely bulging disc material at L5-S1. The visualized intra-abdominal structures unremarkable for acute process. IMPRESSION: 1. Degenerative findings as above with new calcifications anterior to the facets at L4-L5 likely old but if there is persistent pain especially to this region MRI recommended which could also further evaluate the possible central stenosis at L4-L5. Other incidental findings as above. Dictated by: Dictated on workstation # [id number]
[2023-07-14] MEDS ORDERED: oxyCODONE IMMEDIATE RELEASE 5 MG TABLET PO ONE (20:00)
[2023-07-14] MEDS ORDERED: NF-METHYLP PO (20:14)
== END 2023-07-14 20:16 | disposition home or self-care (01) ==
LOC: EDUNIT# 18:48 → ER 18:51
DX: M54.16 Radiculopathy, lumbar region (principal); F17.210 Nicotine dependence, cigarettes, uncomplicated
CPT/HCPCS: 72131